=== PATIENT | female | born 1950 | race Caucasian/White ===

== ENCOUNTER 2017-03-17 12:06 | Day surgery (SDC) | payer BC ==
[2017-03-17] MEDS ORDERED: LIDOCAINE 2% MDV (20MG/ML) 20ML VIAL IV ONE (12:07)
[2017-03-17] MEDS ORDERED: PROPOFOL 10 MG/ML VIAL IV ONE (12:07)
--- NOTE | 2017-03-18 12:41 | Operative Note ---
DATE OF SURGERY: 03/17/2017 OPERATION: COLONOSCOPY to the cecum with multiple biopsies and cold biopsy forceps polypectomy. INDICATION: History of pseudomembranous colitis involving the rectum. The patient with her last colonoscopy some 8 years ago demonstrating inflammatory changes at the distal rectum. Biopsies proved negative for adenomatous tissue. She returns at this time for reevaluation. Clinically, she is doing well. She denies any stool irregularity. ANESTHESIA: Intravenous sedation was administered by the department of anesthesiology and included Diprivan titrated to effect. PROCEDURE: Following informed consent from this alert individual including a discussion of the risks and benefits of the procedure and an opportunity for the patient to ask questions, the patient was in the left lateral decubitus position. A digital rectal examination was performed. No abnormalities were noted. Following this, the Olympus [id number] video colonoscope was inserted into the rectum without resistance. The most distal rectal mucosa had a nodular appearance without ulcerations or erosions noted. There was no true polyp formation noted. The colonoscope was then advanced up through the remainder of the colon to the level of the cecum without much difficulty. Throughout the bowel the mucosa appeared normal, the folds were normal, and the bowel was fairly well distensible. A few small diverticula were noted in the sigmoid region. The cecum was well defined by noting the appendiceal orifice and ileocecal valve. Retroflexion in the cecum was endoscopically unremarkable. From the cecum, the colonoscope was then withdrawn. The colon preparation was good. In the proximal ascending colon, there was a polyp noted finger-like in type measuring 5 mm in size, and this was removed with cold biopsy forceps. No other changes were noted upon withdrawal of the colonoscope until the rectum was reached. Again there was suggestion of a small diverticula noted in the sigmoid region. In the rectum at the level of the distal valve of Bell there was Bell, there was a nodular appearance to the mucosa. This was the site of previous inflammation. Also noted in retroflexion were inflammatory changes with edema and nodularity at the pectinate line likewise also noted on previous evaluation 8 years ago. Biopsies were taken from these areas. The colonoscope was then withdrawn. The patient tolerated the procedure well and was returned to the recovery area in stable condition. IMPRESSION: 1. A 5 mm proximal ascending colon polyp removed with biopsy forceps. 2. Mild sigmoid diverticulosis. 3. Nodular mucosa at the distal valve of Bell and at the pectinate line as described above, biopsy taken. Again, this may represent an area of previous inflammatory change from either pseudomembranous colitis or ischemic colitis noted years ago. The appearance appeared to be unchanged over the past 8 years. RECOMMENDATIONS: Further recommendations forthcoming pending results of biopsy. Followup will also be with Dr. Clemente. As always, thank you for allowing me to participate in the care of your patient. CC: Dr. Chyna [email or web address]
== END 2017-03-17 13:59 | disposition home or self-care (01) ==
LOC: HOP 12:06
PROVIDERS: ATTEND Internal Medicine Gastroenterology
DX: Z12.11 Encounter for screening for malignant neoplasm of colon (principal); Z86.010 Personal history of colon polyps; D12.2 Benign neoplasm of ascending colon; K57.30 Diverticulosis of large intestine without perforation or abscess without bleeding; K62.89 Other specified diseases of anus and rectum; K52.89 Other specified noninfective gastroenteritis and colitis; I10 Essential (primary) hypertension; E78.00 Pure hypercholesterolemia, unspecified